=== PATIENT | female | born 1950 | race Caucasian/White ===

== ENCOUNTER → 2021-09-15 | Outpatient (CLI) | payer MEDICARE ==
[~2021-09-15] MED LIST: NORCO 7.5-3251 EACH PO
== END ==
LOC: NM 08:00
DX: C50.312 Malignant neoplasm of lower-inner quadrant of left female breast (principal)
CPT/HCPCS: 78306; A9503

== ENCOUNTER → 2021-09-18 | Outpatient (CLI) | payer MEDICARE | LOC: MAMO 08:25 → MRI 10:00 → CT 11:00 | DX: Z12.31 Encounter for screening mammogram for malignant neoplasm of breast (principal); C50.312 Malignant neoplasm of lower-inner quadrant of left female breast | CPT/HCPCS: 70553; 71260; 77063; 77067; A9577 ==

== ENCOUNTER → 2021-10-26 | Outpatient (CLI) | payer MEDICARE | LOC: ECHO 08:53 | DX: C50.312 Malignant neoplasm of lower-inner quadrant of left female breast (principal); I37.1 Nonrheumatic pulmonary valve insufficiency; I51.7 Cardiomegaly; I51.9 Heart disease, unspecified | CPT/HCPCS: ECHO; 93306 ==